=== PATIENT | male | born 1990 | race Caucasian/White ===

== ENCOUNTER 2017-03-31 08:10 | Emergency (ER) | payer SELFPAY ==
[~2017-03-31] VITALS: Ht 175.3 cm; Wt 72.6 kg
[2017-03-31 08:14] VITALS: BP 147/89
--- NOTE | 2017-03-31 08:25 | NUR ---
27 M BIB SELF WITH C/O 9/10 "SHARP" NON RADIATING LEFT EAR PAIN X 3 DAYS; DENIES INJURY/TRAUMA, NO DISCHARGED NOTED TO LEFT EAR; PT DENIES ANY CHANGES IN HEARING IN LEFT EAR OR RECENT FEVERS; PT IS AOX4; RR ARE EVEN AND UNLABORED; ER MD VIDAL BY BEDSIDE EXAMINING PT
[2017-03-31 08:30] VITALS: BP 147/89
--- NOTE | 2017-03-31 08:30 | NUR ---
Patient discharged with v/s stable. Written and verbal after care instructions given and explained. Patient alert, oriented and verbalized understanding of instructions. Ambulatory with steady gait. All questions addressed prior to discharge. ID band removed. Patient advised to follow up with PMD. Rx of Cortisporin and MOtrin given. Patient educated on indication of medication including possible reaction and side effects. Opportunity to ask questions provided and answered.
== END 2017-03-31 08:30 | disposition home or self-care (01) ==
LOC: MED 08:10
DX: H60.92 Unspecified otitis externa, left ear (principal); F17.210 Nicotine dependence, cigarettes, uncomplicated
CPT/HCPCS: 99283